=== PATIENT | female | born 1995 | race Caucasian/White ===

== ENCOUNTER 2017-02-01 17:31 | Emergency (ER) | payer BC ==
[~2017-02-01] VITALS: Ht 167.6 cm; Wt 81.8 kg
[~2017-02-01 17:31] MED LIST: FERROUS SULFAT325 MG PO; IBUPROFEN600 MG PO; KEFLEX500 M1 PO; MACROBID100 MG PO; NORCO1 TA2 PO; PRE-NATAL PO; PROCARDIA XL30 MG PO; TYLENOL 500MG TAB PO
[2017-02-01] MEDS ORDERED: IRON27 MG PO (17:46)
[2017-02-01] MEDS ORDERED: PERCOCET 5/325M1 TAB PO (18:18)
[2017-02-01] MEDS ORDERED: CLINDAMYCIN300 M1 PO (18:18)
[2017-02-01 19:07] VITALS: BP 129/88
== END 2017-02-01 19:07 | disposition home or self-care (01) | DRG 159 ==
LOC: ED 17:31
DX: K08.89 Other specified disorders of teeth and supporting structures (principal)

== ENCOUNTER 2018-06-11 22:03 | Emergency (ER) | payer SELFPAY ==
[~2018-06-11] VITALS: Ht 167.6 cm; Wt 99.2 kg
[~2018-06-11 22:03] MED LIST changes: +CLINDAMYCIN300 M1 PO; +IRON27 MG PO; +PERCOCET 5/325M1 TAB PO
[2018-06-11 22:51] LABS: URINE BILIRUBIN - DIPSTICK NEGATIVE (NEGATIVE); URINE BLOOD DIPSTICK NEGATIVE (NEGATIVE); URINE COLOR YELLOW; URINE GLUCOSE - DIPSTICK NEGATIVE (NEGATIVE); URINE KETONE NEGATIVE (NEGATIVE); URINE LEUK ESTERASE NEGATIVE (NEGATIVE); URINE NITRITE - DIPSTICK NEGATIVE (Negative); URINE PROTEIN - DIPSTICK NEGATIVE (NEG-TRACE); URINE UROBILINOGEN - DIPSTICK 0.2 E.U./dL (0.2)
[2018-06-11 22:51] LABS: HEMATOCRIT 37.2 % (37.0-47.0); HEMOGLOBIN 11.9 g/dl (12.0-16.0); IMMATURE GRANULOCYTES 0.3 % (0.0-5.0); MEAN CELL VOLUME 87.3 fL CALC (80.0-100.0); MEAN CORPUSCULAR HGB 27.9 pG CALC (26.0-32.0); NEUT# 6.15 thou/uL (2.00-7.15); RED BLOOD COUNT 4.26 mill/uL (4.20-5.60); RED CELL DISTRI WIDTH 13.2 % (11.5-15.5)
[2018-06-11 22:53] LABS: URINE CLARITY TURBID
[2018-06-11 22:59] LABS: URINE AMORPH SEDIMENT MANY hpf (NONE-FEW); URINE BACTERIA FEW hpf; URINE MUCUS FEW hpf (NONE-FEW); URINE RBC 0-2 RBC/hpf (0-5); URINE SQUAMOUS EPITHELIAL CELL MODERATE EPI/hpf (0-FEW); URINE WBC 0-2 WBC/hpf (0-5)
[2018-06-11 23:07] LABS: ALKALINE PHOSPHATASE 112 u/l (38-126); AMYLASE < 30 u/l (30-110); BILIRUBIN, TOTAL 0.5 mg/dL (0.0-1.4); BUN 12 mg/dL (7-17); BUN/CREATININE RATIO 18 (12-20 (CALC)); CARBON DIOXIDE 25 mmol/l (22-30); CHLORIDE 105 mmol/l (95-108); CREATININE 0.7 mg/dL (0.5-1.0); GFR > 60 ML/MIN (>=60 (CALC)); GFR FOR AFR.AMER. > 60 ML/MIN (>=60 (CALC)); LIPASE 72 u/l (23-300); SGOT/AST 20 u/l (14-36); SODIUM 141 mmol/l (137-146)
[2018-06-11 23:14] LABS: ANION GAP 15 (6-22 (CALC))
[2018-06-11 23:15] LABS: ALBUMIN 4.3 g/dL (3.2-5.0); POTASSIUM 4.1 mmol/l (3.5-5.1); TOTAL PROTEIN 7.5 g/dL (6.3-8.2)
[2018-06-12] MEDS ORDERED: MIRALAX3350 N1 PO (00:04)
[2018-06-12 00:25] VITALS: BP 103/61
== END 2018-06-12 00:25 | disposition home or self-care (01) | DRG 392 ==
LOC: ED 22:03
PROVIDERS: Family Medicine
DX: K59.00 Constipation, unspecified (principal); R10.32 Left lower quadrant pain; R11.0 Nausea

== ENCOUNTER 2018-08-09 07:04 | Emergency (ER) | payer SELFPAY ==
[~2018-08-09] VITALS: Ht 167.6 cm; Wt 100.0 kg
[~2018-08-09 07:04] MED LIST changes: +MIRALAX3350 N1 PO
[2018-08-09] MEDS ORDERED: ZPAK PO (08:19)
[2018-08-09 08:31] VITALS: BP 128/72
== END 2018-08-09 08:31 | disposition home or self-care (01) | DRG 153 ==
LOC: ED 07:04
DX: J02.9 Acute pharyngitis, unspecified (principal)

== ENCOUNTER 2018-08-29 17:34 | Emergency (ER) | payer BC ==
[~2018-08-29] VITALS: Ht 167.6 cm; Wt 97.7 kg
[~2018-08-29 17:34] MED LIST changes: +ZPAK PO
[2018-08-29] MEDS ORDERED: AZITHROMYCIN500 MG PO (19:14)
[2018-08-29] MEDS ORDERED: TESSALON PERLE100 MG PO (19:14)
[2018-08-29 19:26] VITALS: BP 127/61
== END 2018-08-29 19:26 | disposition home or self-care (01) | DRG 153 ==
LOC: ED 17:34
DX: J02.9 Acute pharyngitis, unspecified (principal); B34.9 Viral infection, unspecified; R50.9 Fever, unspecified; R05 Cough; R09.81 Nasal congestion; R09.89 Other specified symptoms and signs involving the circulatory and respiratory systems

== ENCOUNTER 2022-01-11 09:32 | Emergency (ER) | payer BC ==
[~2022-01-11] VITALS: Ht 167.6 cm; Wt 100.6 kg
[~2022-01-11 09:32] MED LIST changes: +AZITHROMYCIN500 MG PO; +TESSALON PERLE100 MG PO
[2022-01-11 09:47] VITALS: BP 139/95
[2022-01-11 10:13] LABS: HEMATOCRIT 39.4 % (37.0-47.0); HEMOGLOBIN 12.3 g/dl (12.0-16.0); IMMATURE GRANULOCYTES 0.2 % (0.0-5.0); MEAN CELL VOLUME 90.8 fL CALC (80.0-100.0); MEAN CORPUSCULAR HGB 28.3 pG CALC (26.0-32.0); MEAN CORPUSCULAR HGB CONC 31.2 g/dL CAL (32.0-36.0); NEUT# 6.47 thou/uL (2.00-7.15); RED BLOOD COUNT 4.34 mill/uL (4.20-5.60); RED CELL DISTRI WIDTH 13.3 % (11.5-15.5)
[2022-01-11 10:23] LABS: URINE BILIRUBIN - DIPSTICK NEGATIVE (NEGATIVE); URINE BLOOD DIPSTICK MODERATE (NEGATIVE); URINE COLOR YELLOW; URINE GLUCOSE - DIPSTICK NEGATIVE (NEGATIVE); URINE KETONE NEGATIVE (NEGATIVE); URINE LEUK ESTERASE NEGATIVE (NEGATIVE); URINE NITRITE - DIPSTICK NEGATIVE (Negative); URINE PH 5.5 (4.5-8.0); URINE PROTEIN - DIPSTICK NEGATIVE (NEG-TRACE); URINE SPECIFIC GRAVITY >=1.030; URINE UROBILINOGEN - DIPSTICK 0.2 E.U./dL (0.2)
[2022-01-11 10:32] LABS: URINE SQUAMOUS EPITHELIAL CELL RARE EPI/hpf (0-FEW)
[2022-01-11 10:53] LABS: ALBUMIN 4.4 g/dL (3.2-5.0); ALKALINE PHOSPHATASE 91 u/l (38-126); ANION GAP 11 (6-22 (CALC)); BILIRUBIN, TOTAL 0.7 mg/dL (0.0-1.4); BUN 9 mg/dL (7-17); BUN/CREATININE RATIO 13 (12-20 (CALC)); CARBON DIOXIDE 24 mmol/l (22-30); CHLORIDE 106 mmol/l (95-108); CREATININE 0.7 mg/dL (0.5-1.0); GFR > 60 ML/MIN (>=60 (CALC)); GFR FOR AFR.AMER. > 60 ML/MIN (>=60 (CALC)); LIPASE 56 u/l (23-300); SGOT/AST 25 u/l (14-36); SODIUM 138 mmol/l (137-146); TOTAL PROTEIN 7.9 g/dL (6.3-8.2)
[2022-01-11] MEDS ORDERED: ZOFRAN4 MG/TAB PO (11:39)
[2022-01-11 11:54] VITALS: BP 139/95
== END 2022-01-11 12:00 | disposition home or self-care (01) | DRG 392 ==
LOC: ED 09:32
PROVIDERS: Family Medicine
DX: R10.31 Right lower quadrant pain (principal); R10.32 Left lower quadrant pain; D21.9 Benign neoplasm of connective and other soft tissue, unspecified